=== PATIENT | male | born 1995 | race Caucasian/White ===

== ENCOUNTER 2017-06-15 19:00 | Emergency (ER) | END 2017-06-15 22:10 | disposition home or self-care (01) ==

== ENCOUNTER 2017-09-03 07:26 | Emergency (ER) | END 2017-09-03 09:22 | disposition home or self-care (01) ==

== ENCOUNTER 2018-02-04 00:43 | Emergency (ER) | END 2018-02-04 06:00 | disposition home or self-care (01) ==

== ENCOUNTER → 2018-02-12 | Outpatient (CLI) | END | disposition home or self-care (01) ==